=== PATIENT | female | born 1995 | race Two or more races ===

== ENCOUNTER 2023-05-13 15:53 | Emergency (ER) | payer OTHER ==
[~2023-05-13] VITALS: Ht 162.6 cm; Wt 56.2 kg
[2023-05-13 16:13] VITALS: BP 130/85; TEMP 98.3; O2SAT 100
== END 2023-05-13 16:51 | disposition left against medical advice (07) ==
LOC: ER 16:02
DX: R51.9 Headache, unspecified (principal); Z53.21 Procedure and treatment not carried out due to patient leaving prior to being seen by health care provider